=== PATIENT | female | born 1990 | race Caucasian/White ===

== ENCOUNTER → 2017-11-22 | Outpatient (CLI) | payer MEDICAID ==
[~2017-11-22] MED LIST: ACE3 PO; GADOBENATE 529MG/1ML 15ML VIAL IVP ONE; IBU800 PO; METH0.2T PO; PREN-85 PO; doxycycline PO
--- NOTE | 2017-11-22 14:52 | RADIOLOGY IMAGING REPORT ---
FAC[place] [facility] [place]IENT NAME: Aliyah Lewis : 1990 MR: [id number] V: [id number] EXAM DATE: ORDERING PHYSICIAN: EDWARDO RODRIGUES TECHNOLOGIST: Location: [facility] - [place] Patient: Aliyah Lewis : 1990 Visit/Account:[id number] Date of Sevice: 11/22/2017 EXAMINATION: MRI cervical spine without IV contrast MRI cervical spine with IV contrast HISTORY: Multiple sclerosis, numbness. COMPARISON: Cervical spine MRI from 11/01/2015. TECHNIQUE: Multi-planar, multi-sequence cervical spine MRI was performed before and after IV contras t. CONTRAST: 15 mL of IV MultiHance gadolinium. FINDINGS: Alignment: Straightening of the cervical spine without focal listhesis. Vertebral marrow signal: Negative. Cranio-cervical junction: Negative. Visualized posterior fossa: Negative. Soft tissues: Negative. Cervical cord: There are T2/STIR hyperintense lesions in the cervical cord, including the left dorsol ateral cord at C1-2, the left anterolateral cord at C4-5, and the dorsal cord at C7, which are unchan ged. There is a new dorsal cord slightly eccentric to the right at C6. Enhancement pattern: There is ovoid enhancement of a dorsal cord lesion at C6, new from prior exam. Disc spaces: C1-2: Negative. C2-3: Negative. C3-4: Negative. C4-5: Negative. C5-6: Negative. C6-7: Negative. C7-T1: Negative. Upper thoracic spine: Negative. IMPRESSION: Multiple sclerosis plaques of the cervical cord, including a new enhancing dorsal cord lesion at C6. Report Dictated By: Sheree Mccrary MD at 11/22/2017 2:29 PM Report E-Signed By: Sheree Mccrary MD at 11/22/2017 2:48 PM WSN:[email or web address]
--- NOTE | 2017-11-22 15:00 | RADIOLOGY IMAGING REPORT ---
FACILITY: [facility] PATIENT NAME: Aliyah Lewis : 1990 MR: [id number] V: [id number] EXAM DATE: ORDERING PHYSICIAN: EDWARDO RODRIGUES TECHNOLOGIST: Location: [facility] - [place] Patient: Aliyah Lewis : 1990 Visit/Account:[id number] Date of Sevice: 11/22/2017 EXAMINATION: MRI brain without IV contrast MRI brain with IV contrast HISTORY: Multiple sclerosis, numbness. COMPARISON: Brain MRI from 08/29/2013. TECHNIQUE: Multi-planar, multi-sequence brain MRI was performed before and after IV gadolinium. CONTRAST: 15 mL of IV MultiHance gadolinium. FINDINGS: Brain volume: Normal. Sagittal midline structures: Normal. Ventricles: Normal. Acute ischemic changes: There is no diffusion restriction present to suggest acute ischemia or cytot oxic edema. There are a few scattered areas of T2 shine through bilaterally. Hemorrhage: None. Masses/edema: None. Enhancement: There is vague enhancement in the periventricular deep white matter without a discrete e nhancing lesion. Question linear enhancement of the prechiasmatic right optic nerve, although this co uld be an adjacent vessel. Sheffield-white: Negative. White matter: There are numerous T2/FLAIR hyperintense lesions in the periventricular and subcortica l deep white matter. A few lesions are smaller, including a lesion adjacent to the left frontal horn. There is increase in the periventricular lesions otherwise, particularly in the bilateral periatrial areas. There is a new lesion in the subcortical deep white matter at the medial aspect of the left p recentral gyrus. A left cerebellar lesion and a right brachium pontis lesion are smaller. There are 2 new small left cerebellar lesions. There is irregularity of the callososeptal interface. White matte r volume is normal. Vessels: Normal. Extra-axial: None. Calvarium/scalp: Negative. Skull base: Negative. Visualized sinuses/orbits: Negative. Visualized upper neck: Negative. IMPRESSION: 1. Several multiple sclerosis plaques with decrease in size of a few lesions, and a few new lesions i ncluding in the bilateral periatrial region and medial left precentral gyrus. Vague enhancement in th e periventricular deep white matter without discrete enhancing lesion. 2. Potential linear enhancement of the prechiasmatic right optic nerve, although this may be an adjac ent vessel. If the enhancement is real, this would indicate acute right optic neuritis. 3. No acute infarct, hemorrhage or intracranial mass lesion. Report Dictated By: Sheree Mccrary MD at 11/22/2017 2:48 PM Report E-Signed By: Sheree Mccrary MD at 11/22/2017 2:56 PM WSN:[email or web address]
--- NOTE | 2017-11-22 15:07 | RADIOLOGY IMAGING REPORT ---
FACILITY: [facility] - [place] PATIENT NAME: Aliyah Lewis : 1990 MR: [id number] V: [id number] EXAM DATE: [id number] ORDERING PHYSICIAN: EDWARDO RODRIGUES TECHNOLOGIST: [facility] Patient: Aliyah Lewis : 1990 Visit/Account:[id number] Date of Sevice: 11/22/2017 EXAMINATION: MRI thoracic spine without IV contrast MRI thoracic spine with IV contrast HISTORY: Multiple sclerosis. Numbness. COMPARISON: Thoracic spine MRI from 11/01/2015. TECHNIQUE: Multi-planar, multi-sequence thoracic spine MRI was performed without and after IV contra st. CONTRAST: 15 mL of IV MultiHance gadolinium. FINDINGS: Some of the images are limited by patient motion artifact. Alignment: Negative. Vertebral marrow signal: Negative. Paravertebral soft tissues: Negative. Thoracic cord: There are T2/STIR hyperintense lesions of the right lateral cord at T4, central and do rsal cord at T5, left lateral cord at T7-8, and vague lesions at T10, T11, T12, and in the conus. Sabino e of these lesions may be accentuated by motion artifact. No focal cord atrophy or enlargement. Conus: Negative, terminates at the L1 level. Enhancement: Vague enhancement at T5 has improved. No new abnormal enhancement. Disc spaces: Normal. IMPRESSION: Several multiple sclerosis plaques of the thoracic cord are increased since previous exam. Vague enha ncement at T5 is improved, without new enhancing lesions. Report Dictated By: Sheree Mccrary MD at 11/22/2017 2:56 PM Report E-Signed By: Sheree Mccrary MD at 11/22/2017 3:02 PM WSN:[email or web address]
== END ==
LOC: MRI 01:43
PROVIDERS: ATTEND Specialist
DX: G95.89 Other specified diseases of spinal cord (principal)
CPT/HCPCS: 70553; 72156; 72157; A9577

== ENCOUNTER 2017-11-26 13:51 | Outpatient (RCR) | payer MEDICAID ==
[2017-11-22 14:57] VITALS: BP 125/86
[2017-11-22] MEDS: NS(*) 0.9% 100 ML BAG 100 ML IVPB PRN (15:01)
[2017-11-22] MEDS: LIDOCAINE/SOD BICARB 8.4% SYR ID PRN (15:01)
[2017-11-22 16:42] VITALS: BP 113/79
[2017-11-23] MEDS: NS(*) 0.9% 100 ML BAG 100 ML IVPB PRN (12:00)
[2017-11-23] MEDS: LIDOCAINE/SOD BICARB 8.4% SYR ID PRN (12:00)
[2017-11-23 12:08] VITALS: BP 124/61
[2017-11-23 13:58] VITALS: BP 113/74
[2017-11-24] MEDS: LIDOCAINE/SOD BICARB 8.4% SYR ID PRN (12:12)
[2017-11-24] MEDS: NS(*) 0.9% 100 ML BAG 100 ML IVPB PRN (12:12)
[2017-11-24 13:03] VITALS: BP 119/74
[2017-11-25 11:50] VITALS: BP 125/83
[2017-11-25] MEDS: NS(*) 0.9% 100 ML BAG 100 ML IVPB PRN (12:05)
[2017-11-25] MEDS: LIDOCAINE/SOD BICARB 8.4% SYR ID PRN (12:05)
[2017-11-25] MEDS: methylPREDNIS SUC* 1000 MG/8ML 1,000 MG in NS(*) 0.9% 250 ML BAG 250 ML IV PRN (12:21)
[~2017-11-26 13:51] MED LIST changes: +DEXTROSE 5%(*) 100 ML BAG 100 ML IVPB PRN; -GADOBENATE 529MG/1ML 15ML VIAL IVP ONE; +LIDOCAINE/SOD BICARB 8.4% SYR ID PRN; +NS(*) 0.9% 100 ML BAG 100 ML IVPB PRN; +methylPREDNIS SUC* 1000 MG/8ML 1,000 MG in NS(*) 0.9% 250 ML BAG 250 ML IV ONE
[2017-11-26 14:33] VITALS: BP 132/80
[2017-11-26] MEDS: LIDOCAINE/SOD BICARB 8.4% SYR ID PRN (14:52)
[2017-11-26] MEDS: methylPREDNIS SUC* 1000 MG/8ML 1,000 MG in NS(*) 0.9% 250 ML BAG 250 ML IV PRN (14:52)
[2017-11-26] MEDS: NS(*) 0.9% 100 ML BAG 100 ML IVPB PRN (14:53)
== END 2018-01-02 16:34 | disposition home or self-care (01) ==
LOC: SPU 13:51
PROVIDERS: ATTEND Specialist
DX: G35 Multiple sclerosis (principal); R20.0 Anesthesia of skin
CPT/HCPCS: 96365; 96374; J2930; J7050; 70553; 72156; 72157; A9577

== ENCOUNTER 2018-02-14 08:23 | Outpatient (RCR) | payer MEDICAID ==
[2018-01-31] MEDS: LIDOCAINE/SOD BICARB 8.4% SYR ID PRN (08:50)
[2018-01-31] MEDS: NS(*) 0.9% 100 ML BAG 100 ML IVPB PRN ×2 (08:51→13:25)
[2018-01-31 09:04] VITALS: BP 117/70
[2018-01-31] MEDS: ACETAMINOPHEN 500 MG TAB PO PRN (09:14)
[2018-01-31] MEDS: methylPREDNIS SUCC 125 MG/2ML IVP PRN (09:14)
[2018-01-31] MEDS: diphenhydrAMINE 50 MG/ML VIAL IVP PRN (09:19)
[2018-01-31 14:54] VITALS: BP 116/69
[~2018-02-14 08:23] MED LIST changes: -LIDOCAINE/SOD BICARB 8.4% SYR ID PRN; -NS(*) 0.9% 100 ML BAG 100 ML IVPB PRN; +OCRELIZUMAB 300 MG/10 ML SDV 300 MG in NS(*) 0.9% 250 ML BAG 250 ML IVPB ONE; -methylPREDNIS SUC* 1000 MG/8ML 1,000 MG in NS(*) 0.9% 250 ML BAG 250 ML IV ONE
[2018-02-14 08:32] VITALS: BP 128/84
[2018-02-14] MEDS: diphenhydrAMINE 50 MG/ML VIAL IVP PRN (08:47)
[2018-02-14] MEDS: ACETAMINOPHEN 500 MG TAB PO PRN (08:47)
[2018-02-14] MEDS: LIDOCAINE/SOD BICARB 8.4% SYR ID PRN (08:48)
[2018-02-14] MEDS: methylPREDNIS SUCC 125 MG/2ML IVP PRN (08:48)
[2018-02-14] MEDS: NS(*) 0.9% 100 ML BAG 100 ML IVPB PRN ×2 (08:48→09:26)
[2018-02-14] MEDS ORDERED: OCRELIZUMAB 300 MG/10 ML SDV 300 MG in NS(*) 0.9% 250 ML BAG 250 ML IVPB ONE (09:15)
[2018-02-14 12:36] VITALS: BP 109/66
== END 2018-03-29 09:10 | disposition home or self-care (01) ==
LOC: SPU 08:23
PROVIDERS: ATTEND Specialist
DX: G35 Multiple sclerosis (principal); R20.0 Anesthesia of skin
CPT/HCPCS: 96365; 96366; 96367; 96375; 96376; J1200; J2350; J2930; J7050

== ENCOUNTER → 2018-07-15 | Outpatient (CLI) | payer MEDICAID ==
[~2018-07-15] MED LIST changes: -DEXTROSE 5%(*) 100 ML BAG 100 ML IVPB PRN; -OCRELIZUMAB 300 MG/10 ML SDV 300 MG in NS(*) 0.9% 250 ML BAG 250 ML IVPB ONE
[2018-07-15 09:09] LABS: PLATELET COUNT, AUTOMATED 236 K/uL (150-450)
== END ==
LOC: LAB 07:59
PROVIDERS: ATTEND Specialist
DX: G35 Multiple sclerosis (principal); Z79.899 Other long term (current) drug therapy
CPT/HCPCS: 36415; 82040; 82247; 82310; 82374; 82435; 82565; 82784; 82947; 84075; 84132; 84155; 84295; 84450; 84460; 84520; 85025; 88184; 88185

== ENCOUNTER 2018-08-14 15:25 | Outpatient (RCR) | payer MEDICAID ==
[2018-08-15] MEDS ORDERED: DEXTROSE 5%(*) 100 ML BAG 100 ML IVPB PRN (07:10)
[2018-08-15] MEDS ORDERED: NS(*) 0.9% 100 ML BAG 100 ML IVPB PRN (07:10)
[2018-08-15] MEDS ORDERED: LIDOCAINE/SOD BICARB 8.4% SYR ID PRN (07:10)
[2018-08-15 08:28] VITALS: BP 132/82
[2018-08-15] MEDS ORDERED: diphenhydrAMINE 50 MG/ML VIAL IVP PRN (08:35)
[2018-08-15] MEDS ORDERED: methylPREDNIS SUCC 125 MG/2ML IVP PRN (08:35)
[2018-08-15] MEDS ORDERED: ACETAMINOPHEN 500 MG TAB PO PRN (08:35)
[2018-08-15] MEDS ORDERED: OCRELIZUMAB 300 MG/10 ML SDV 600 MG in NS(*) 0.9% 500 ML BAG 500 ML IVPB ONE (09:15)
== END 2018-09-04 11:06 | disposition home or self-care (01) ==
LOC: SPU 15:25
PROVIDERS: ATTEND Specialist
DX: G35 Multiple sclerosis (principal); R20.0 Anesthesia of skin
CPT/HCPCS: 96374; 96413; 96415; J1200; J2350; J2930; J7040; J7050

== ENCOUNTER → 2019-01-08 | Outpatient (CLI) | payer MEDICAID ==
[~2019-01-08] MED LIST changes: +GADOBENATE 529MG/1ML 15ML VIAL IVP ONE
--- NOTE | 2019-01-08 16:16 | RADIOLOGY IMAGING REPORT ---
FACILITY: [facility] - [place] PATIENT NAME: Aliyah Lewis : 1990 MR: [id number] V: [id number] EXAM DATE: ORDERING PHYSICIAN: EDWARDO RODRIGUES TECHNOLOGIST: [facility] Patient: Aliyah Lewis : 1990 Visit/Account:[id number] Date of Sevice: 01/08/2019 EXAMINATION: MRI brain without IV contrast MRI brain with IV contrast HISTORY: Multiple sclerosis. Long-term use of high risk medication. COMPARISON: Brain MRI from 11/22/2017. TECHNIQUE: Multi-planar, multi-sequence brain MRI was performed before and after IV gadolinium. CONTRAST: 15 mL of IV MultiHance gadolinium. FINDINGS: Brain volume: Normal. Sagittal midline structures: Normal. Ventricles: Normal. Acute ischemic changes: There is no diffusion restriction present to suggest acute ischemia or cytot oxic edema. There are a few areas of T2 shine through in the deep white matter bilaterally. Hemorrhage: No acute hemorrhage or hemosiderin staining. Masses/edema: None. Enhancement: There is vague enhancement in the periventricular deep white matter which is similar to previous exam. No discretely enhancing lesion. Potential enhancement of the right prechiasmatic opt ic nerve is no longer visualized. Sheffield-white: Negative. White matter: Numerous T2/FLAIR hyperintense lesions in the periventricular and subcortical deep whi te matter are similar to previous exam. Several of the lesions are oriented perpendicular to the lat eral ventricular surface. Mild irregularity of the callososeptal interface with small right brachium pontis and left cerebellar lesions. There are no new lesions. White matter volume is normal. Vessels: Normal. Extra-axial: None. Calvarium/scalp: Negative. Skull base: Negative. Visualized sinuses/orbits: Mild nasal septal deviation to the right. Visualized upper neck: Negative. IMPRESSION: 1. Multiple sclerosis plaques are similar to previous exam without new lesions. 2. Vague enhancement in the periventricular deep white matter is unchanged, without new discrete enh ancing plaques. 3. No acute infarct, hemorrhage or intracranial mass lesion. Report Dictated By: Sheree Mccrary MD at 01/08/2019 4:05 PM Report E-Signed By: Sheree Mccrary MD at 01/08/2019 4:11 PM WSN:[id number]
--- NOTE | 2019-01-08 16:18 | RADIOLOGY IMAGING REPORT ---
FACILITY: [facility] - [place] PATIENT NAME: Aliyah Lewis : 1990 MR: [id number] V: [id number] EXAM DATE: ORDERING PHYSICIAN: EDWARDO RODRIGUES TECHNOLOGIST: [place] [facility] [place]yah [place] : 1990 Visit/Account:[id number] Date of Sevice: 01/08/2019 EXAMINATION: MRI cervical spine without IV contrast MRI cervical spine with IV contrast HISTORY: Multiple sclerosis, long-term use of high risk medication. COMPARISON: Cervical spine MRI from 11/22/2017. TECHNIQUE: Multi-planar, multi-sequence cervical spine MRI was performed before and after IV contras t. CONTRAST: 15 mL of IV MultiHance gadolinium. FINDINGS: The exam is mildly limited by patient motion artifact. Alignment: Straightening of the cervical spine without focal listhesis. Vertebral marrow signal: Negative. Cranio-cervical junction: Negative. Visualized posterior fossa: Negative. Soft tissues: Negative. Cervical cord: There are patchy T2/STIR hyperintense lesions in the cord, including the left dorsolat eral cord at C1-2, the left anterolateral cord at C4-5, and the dorsal cord at C7. A lesion in the d orsal cord at C6 is slightly smaller. No definite new lesions allowing for motion. Enhancement pattern: No abnormal cord enhancement. Disc spaces: C1-2: Negative. C2-3: Negative. C3-4: Negative. C4-5: Negative. C5-6: Negative. C6-7: Negative. C7-T1: Negative. Upper thoracic spine: Negative. IMPRESSION: Nonenhancing multiple sclerosis plaques of the cord. A plaque at C6 is decreased in size without res idual enhancement. No new lesions. Report Dictated By: Sheree Mccrary MD at 01/08/2019 4:11 PM Report E-Signed By: Sheree Mccrary MD at 01/08/2019 4:14 PM WSN:[id number]
--- NOTE | 2019-01-08 16:22 | RADIOLOGY IMAGING REPORT ---
FACILITY: [facility] - [place] PATIENT NAME: Aliyah Lewis : 1990 MR: [id number] V: [id number] EXAM DATE: ORDERING PHYSICIAN: DEWARDO RODRIGUES TECHNOLOGIST: Location: [facility] Patient: Aliyah Lewis : 1990 Visit/Account:[id number] Date of Sevice: 01/08/2019 EXAMINATION: MRI thoracic spine without IV contrast MRI thoracic spine with IV contrast HISTORY: Multiple sclerosis, long-term use of high risk medication. COMPARISON: Thoracic spine MRI from 11/22/2017. TECHNIQUE: Multi-planar, multi-sequence thoracic spine MRI was performed without and after IV contra st. CONTRAST: 15 mL of IV MultiHance gadolinium. FINDINGS: The exam is mildly limited by patient motion artifact. Alignment: Negative. Vertebral marrow signal: Negative. Paravertebral soft tissues: Negative. Thoracic cord: Allowing for motion patchy T2/STIR hyperintense cord lesions are similar to previous e xam, although some of them are less well-visualized. Conus: Negative, terminates at the L1 level. Enhancement: Vague enhancement at T5 is unchanged. There are no new areas of enhancement. Disc spaces: Normal. IMPRESSION: Multiple sclerosis plaques of the thoracic cord are unchanged, allowing for motion artifact. No new lesions. Vague enhancement at T5 is unchanged. Report Dictated By: Sheree Mccrary MD at 01/08/2019 4:14 PM Report E-Signed By: Sheree Mccrary MD at 01/08/2019 4:18 PM WSN:[id number]
== END ==
LOC: MRI 00:54
PROVIDERS: ATTEND Specialist
DX: G35 Multiple sclerosis (principal); Z79.899 Other long term (current) drug therapy
CPT/HCPCS: 70553; 72156; 72157; A9577

== ENCOUNTER → 2019-01-15 | Outpatient (CLI) | payer MEDICAID ==
[~2019-01-15] MED LIST changes: -GADOBENATE 529MG/1ML 15ML VIAL IVP ONE
[2019-01-15 08:40] LABS: PLATELET COUNT, AUTOMATED 217 K/uL (150-450)
== END ==
LOC: LAB 08:04
PROVIDERS: ATTEND Specialist
DX: Z79.899 Other long term (current) drug therapy (principal); G35 Multiple sclerosis
CPT/HCPCS: 36415; 82040; 82247; 82310; 82374; 82435; 82565; 82784; 82947; 84075; 84132; 84155; 84295; 84450; 84460; 84520; 85025

== ENCOUNTER 2019-02-13 08:18 | Outpatient (RCR) | payer MEDICAID ==
[~2019-02-13 08:18] MED LIST changes: +ACETAMINOPHEN 500 MG TAB PO ONE; +DEXTROSE 5%(*) 100 ML BAG 100 ML IVPB PRN; +LIDOCAINE/SOD BICARB 8.4% SYR ID PRN; +NS(*) 0.9% 100 ML BAG 100 ML IVPB PRN; +diphenhydrAMINE 50 MG/ML VIAL IVP ONE; +methylPREDNIS SUCC 125 MG/2ML IVP ONE
[2019-02-13 09:01] VITALS: BP 113/86
[2019-02-13] MEDS ORDERED: OCRELIZUMAB 300 MG/10 ML SDV 600 MG in NS(*) 0.9% 500 ML BAG 500 ML IVPB ONE (09:30)
[2019-02-13 13:49] VITALS: BP 124/75
== END 2019-03-10 16:17 | disposition home or self-care (01) ==
LOC: SPU 08:18
PROVIDERS: ATTEND Specialist
DX: G35 Multiple sclerosis (principal)
CPT/HCPCS: 96365; 96366; 96375; J1200; J2350; J2930; J7040; J7050